=== PATIENT | male | born 1995 | race Caucasian/White ===

== ENCOUNTER 2018-10-07 09:26 | Emergency (ER) | payer SELFPAY ==
[~2018-10-07] VITALS: Ht 157.5 cm; Wt 56.8 kg
[~2018-10-07 09:26] MED LIST: ALBU8.5H8 IH
[2018-10-07] MEDS ORDERED: IPRATROPIUM BROMIDE 0.5 MG/2.5 ML NEB SOLUTION NEB ONE (09:45)
[2018-10-07] MEDS ORDERED: PredniSONE 20 MG TABLET PO ONE (09:45)
[2018-10-07] MEDS ORDERED: ALBUTEROL SULFATE 5 MG/ML 20 ML NEB SOLN [BULK] NEB ONE (09:45)
[2018-10-07 11:30] VITALS: BP 136/73
== END 2018-10-07 11:36 | disposition home or self-care (01) ==
LOC: EMS 09:28
DX: J45.909 Unspecified asthma, uncomplicated (principal); Z79.899 Other long term (current) drug therapy
CPT/HCPCS: 94644; 99285; J7512